=== PATIENT | male | born 1985 | race Caucasian/White ===

== ENCOUNTER → 2017-12-13 08:54 | Outpatient (CLI) | payer OTHER, SELFPAY ==
--- NOTE | 2017-12-13 | DI.MRI.S_ITS ---
PROCEDURE: MR LUMBAR SPINE WO CON INDICATIONS: LOW BACK PAIN TECHNIQUE: Noncontrast sagittal T1 spin echo and T2 fast echo, sagittal STIR, axial T1 and T2 fast spin echo through the lumbar spine. In cases with scoliosis, additional coronal T2 fast spin echo may be performed. COMPARISON: None. FINDINGS: Image quality: Excellent. Alignment and Curvature: There is trace retrolisthesis of L2 on L3, L3 on L4, L4 on L5 and Grade I retrolisthesis, measuring 5 mm of L5 on S1. Bone Marrow: Marrow is of normal overall signal. Minimal reactive endplate changes are present at L5-S1. No acute vertebral body compression fractures. Spinal Cord: Conus medullaris terminates at the L1 level. Visualized cord demonstrates normal signal and size. Paraspinous Soft Tissues: No paravertebral masses. Discs: Moderate desiccation is present at L5-S1. L1-L2: No disc bulge, spinal stenosis or foraminal narrowing. L2-L3: Minimal disc bulge stenosis or foraminal narrowing. L3-L4: Normal appearance. L4-L5: Minimal disc bulge with minimal appearance of canal narrowing. Minimal left foraminal narrowing. L5-S1: Mild disc bulge without spinal stenosis. There is moderate to severe right and moderate left foraminal narrowing. IMPRESSION: 1. Early degenerative changes most prominent L5-S1 with prominent bilateral foraminal narrowing predominantly secondary to retrolisthesis. Dictated by: Niki Neves M.D. on 12/13/2017 at 11:07 Approved by: Niki Neves M.D. on 12/13/2017 at 11:16
== END ==
PROVIDERS: Visit Provider Family Medicine
DX: M99.73 Connective tissue and disc stenosis of intervertebral foramina of lumbar region (principal); M43.17 Spondylolisthesis, lumbosacral region
CPT/HCPCS: 72148